=== PATIENT | male | born 1975 | race American Indian/Alaskan Native ===

== ENCOUNTER 2017-01-05 13:36 | Emergency (ER) | payer SELFPAY ==
[2017-01-05 14:21] LABS: Basophils % (Auto) 0.3 % (0.0-1.8); Eosinophils % (Auto) 0.1 % (0.0-4.3); Hematocrit 44.8 % (35.5-45.6); Hemoglobin 14.6 gm/dl (11.8-15.2); Mean Corpuscular HGB Conc 33 % (32-34); Mean Corpuscular Hemoglobin 33 pg (28-32); Mean Corpuscular Volume 100 fl (84-94); Platelet Count 214 K/mm3 (140-440); Red Blood Count 4.48 M/mm3 (3.65-5.03); Red Cell Distribution Width 15.3 % (13.2-15.2); White Blood Count 7.9 K/mm3 (4.5-11.0)
[2017-01-05 14:48] LABS: Anion Gap 27 mmol/L; BUN/Creatinine Ratio 11.42; Blood Urea Nitrogen 8 mg/dL (9-20); Calcium 9.3 mg/dL (8.4-10.2); Carbon Dioxide 21 mmol/L (22-30); Chloride 90.4 mmol/L (98-107); Glucose 134 mg/dL (75-100); Potassium 3.7 mmol/L (3.6-5.0); Sodium 135 mmol/L (137-145)
[2017-01-05 15:14] LABS: Bilirubin,Urine NEG (Negative); Blood,Urine NEG (Negative); Ketones,Urine 80 mg/dL (Negative); Leukocyte Esterase,Urine NEG (Negative); Mucus,Urine FEW /HPF; Nitrite,Urine NEG (Negative)
[2017-01-05] MEDS ORDERED: ZOFRAN ODT PO ONE (16:02)
[2017-01-05] MEDS ORDERED: ALUM-MAG HYDROX-SIMETH 200-200-20MG/5ML PO ONE (16:03)
[2017-01-05] MEDS ORDERED: LIDOCAINE VISCOUS 2% PO ONE (16:03)
--- NOTE | 2017-01-05 16:04 | Emergency Department Report ---
ED Abdominal Pain HPI - General Chief Complaint: Nausea/Vomiting/Diarrhea Stated Complaint: vomit x 1 today w blood; etoh Time Seen by Provider: 01/05/17 15:51 Source: patient, family, old records reviewed Mode of arrival: Ambulatory Limitations: No Limitations - History of Present Illness -: Sudden Location: epigastric Radiation: none Migration to: no migration Severity: mild Quality: sharp Consistency: now resolved Improves With: nothing Worsens With: nothing Associated Symptoms: other (etoh). denies: nausea, vomiting, diarrhea, fever, chills, constipation, dysuria, hematemesis, hematochezia, melena, hematuria, anorexia, syncope - Related Data Allergies Allergy/AdvReac Type Severity Reaction Status Date / Time No Known Allergies Allergy Verified 01/05/17 14:04 ED Review of Systems ROS: Stated complaint: VOMITING BLOOD WITH CHEST PAIN Other details as noted in HPI Comment: Unobtainable due to pts medical conditions Constitutional: no symptoms reported, see HPI. denies: chills, diaphoresis, fever, malaise Eyes: as per HPI. denies: eye pain ENT: as per HPI. denies: ear pain, throat pain Respiratory: no symptoms reported, see HPI. denies: cough, orthopnea Cardiovascular: as per HPI. denies: chest pain, palpitations, dyspnea on exertion, orthopnea Endocrine: no symptoms reported, see HPI. denies: excessive sweating ED Past Medical Hx - Past Medical History Previous Medical History?: No Hx Hypertension: No Hx CVA: No Hx Heart Attack/AMI: No Hx Congestive Heart Failure: No Hx Diabetes: No Hx Deep Vein Thrombosis: No Hx Pulmonary Embolism: No Hx GERD: No Hx Liver Disease: No Hx Renal Disease: No Hx of Cancer: No Hx Sickle Cell Disease: No Hx Arthritis: No Hx Headaches / Migraines: No Hx Seizures: No Hx Kidney Stones: No Hx Psychiatric Treatment: No Hx Asthma: No Hx COPD: No Hx Tuberculosis: No Hx Dementia: No Hx HIV: No Additional medical history: etoh daily 8-17 shots - Surgical History Past Surgical History?: Yes Additional Surgical History: right hand - Social History Smoking Status: Current Every Day Smoker Substance Use Type: Alcohol ED Physical Exam - General Limitations: No Limitations General appearance: alert - Head Head exam: Present: atraumatic - Eye Eye exam: Present: normal appearance Pupils: Present: normal accommodation - ENT ENT exam: Present: mucous membranes moist - Neck Neck exam: Present: normal inspection - Respiratory Respiratory exam: Present: normal lung sounds bilaterally - Cardiovascular Cardiovascular Exam: Present: regular rate, tachycardia - GI/Abdominal GI/Abdominal exam: Present: soft, tenderness (over epigastric area), normal bowel sounds, other (obese). Absent: distended, guarding, rebound, rigid, diminished bowel sounds, hyperactive bowel sounds, hypoactive bowel sounds, organomegaly, mass, bruit, pulsatile mass, hernia - Rectal Rectal exam: Present: deferred - exam: Present: normal inspection - Extremities Exam Extremities exam: Present: normal inspection, full ROM. Absent: tenderness - Back Exam Back exam: Present: normal inspection, full ROM. Absent: tenderness, CVA tenderness (R), CVA tenderness (L) - Neurological Exam Neurological exam: Present: alert, oriented X3, CN II-XII intact, normal gait, reflexes normal - Psychiatric Psychiatric exam: Present: normal affect, anxious - Skin Skin exam: Present: warm, dry, intact, other (pallor) ED Course Vital Signs 01/05/17 01/05/17 14:00 19:09 Temperature 98.3 F Pulse Rate 109 H 101 H Respiratory 16 16 Rate Blood Pressure 127/95 Blood Pressure 140/87 [Left] O2 Sat by Pulse 100 100 Oximetry - Reevaluation(s) Reevaluation #1: 01/05/17 to er today p vomiting blood x 1. this scared him and brought him in. he has epigastric pain and tenderness; no ruq pain or tenderess no fever taking po no n/v/d while here labs noted lft inc w bili inc pallor on exam h/h stable heavy daily etoh use last this am does want to quit but has been unsuccessful no s/s of dt's or withdrawal no home meds no pcp discussed concerns w pt and gi cocktail fluids admit for eval liver dis w inc bili and etoh no tenderness to ruq. no wbc. no fever. will defer imaging to hosp Dr Richards ED Medical Decision Making - Lab Data Result diagrams: 01/05/17 14:10 01/05/17 14:10 - EKG Data Interpretation: no acute changes - Medical Decision Making admit w transaminitis and hyperbil epigastric pain in setting of etoh - Differential Diagnosis etoh abuse concern for cir w hepatic pressure and esoph variceis Critical care attestation.: If time is entered above; I have spent that time in minutes in the direct care of this critically ill patient, excluding procedure time. ED Disposition Clinical Impression: Transaminitis, Hyperbilirubinemia, Alcohol abuse, Epigastric pain, Hematemesis Disposition: OP ADMIT IP TO THIS HOSP Is pt being admited?: Yes Does the pt Need Aspirin: No Condition: Stable Time of Disposition: 19:04
[2017-01-05 16:12] LABS: Albumin 4.6 g/dL (3.9-5); Albumin/Globulin Ratio 1.4 %; Bilirubin,Indirect 2.9 mg/dL; Bilirubin,Total 3.9 mg/dL (0.1-1.2); Total Protein 7.8 g/dL (6.3-8.2)
[2017-01-05] MEDS ORDERED: NACL 0.9% 1000 ML 1,000 ML IV ONE (17:06)
[2017-01-05] MEDS ORDERED: FOLVITE PO SCH (19:25)
--- NOTE | 2017-01-05 19:27 | History and Physical Report ---
History of Present Illness Chief complaint: My stomach hurts History of present illness: 41 YO Male with ETOH Abuse, ETOH Gastritis, Nicotine Dependence presents to ED for evaluation. Pt states that he has experienced abdominal pain, and 1 episode of vomiting with flecks of blood. Pt denies fever, chills, CP, Palpitations, Nausea, diarrhea, productive cough, recent ill contacts, BRBPR, Melena. Pt seen and evaluated in ED, but no significant physical exam findings. Pt medically optimized and treated with supportive care. Pt back to usual state of health. Pt counseled regarding ETOH cessation and discharged home and instructed to f/u with AA, F/U PCP 1wk. Past History Past Medical History: other (Nicotine Dependence, ETOH abuse, ETOG gastritis) Past Surgical History: No surgical history, Other (reviewed) Social history: single, smoking, alcohol abuse. denies: prescription drug abuse , IV drug use Family history: hypertension Medications and Allergies Allergies Allergy/AdvReac Type Severity Reaction Status Date / Time No Known Allergies Allergy Verified 01/05/17 14:04 Home Medications Medication Instructions Recorded Confirmed Last Taken Type Folic Acid [Folvite] 1 mg PO QDAY #30 tablet 01/05/17 Unknown Rx Multivitamin Tab [Multiple Vitamin 1 each PO QDAY #30 tablet 01/05/17 Unknown Rx TAB (Theragran)] Pantoprazole [Protonix] 40 mg PO QDAY #30 tablet 01/05/17 Unknown Rx Sucralfate [Carafate] 1 gm PO ACHS #30 tablet 01/05/17 Unknown Rx Active Meds: Active Medications Sodium Chloride (Nacl 0.45%) 1,000 mls @ 100 mls/hr IV DIRECT VAISHNAVI Pantoprazole Sodium (Protonix) 40 mg IV ONCE.ED ONE Stop: 01/05/17 20:01 Review of Systems Constitutional: no weight loss, no weight gain, no fever, no chills Ears, nose, mouth and throat: no ear pain, no ear discharge, no tinnitis, no decreased hearing, no nose pain, no nasal congestion, no nasal discharge Cardiovascular: no chest pain, no orthopnea, no palpitations, no rapid/ irregular heart beat, no edema, no syncope Respiratory: no cough, no cough with sputum, no excessive sputum, no hemoptysis , no shortness of breath Gastrointestinal: no abdominal pain, no nausea, no vomiting, no diarrhea, no constipation, no change in bowel habits Genitourinary Male: no dysuria, no hematuria, no flank pain, no discharge, no urinary frequency, no urinary hesitancy Rectal: no pain, no incontinence, no bleeding Musculoskeletal: no neck stiffness, no neck pain, no shooting arm pain, no arm numbness/tingling, no low back pain Integumentary: no rash, no pruritis, no redness, no sores, no wounds, no jaundice Neurological: no transient paralysis, no paralysis, no weakness, no parathesias , no numbness, no tingling, no seizures, no syncope Psychiatric: no anxiety, no memory loss, no change in sleep habits, no sleep disturbances, no insomnia, no hypersomnia Endocrine: no cold intolerance, no heat intolerance, no polyphagia, no excessive thirst, no polydipsia, no polyuria Hematologic/Lymphatic: no easy bruising, no easy bleeding Allergic/Immunologic: no urticaria, no allergic rhinitis, no wheezing Exam - Constitutional Vitals: Temp Pulse Resp BP Pulse Ox 98.3 F 101 H 16 140/87 100 01/05/17 14:00 01/05/17 19:09 01/05/17 19:09 01/05/17 19:09 01/05/17 19:09 General appearance: Present: no acute distress, well-nourished - EENT Eyes: Present: PERRL ENT: hearing intact, clear oral mucosa - Neck Neck: Present: supple, normal ROM - Respiratory Respiratory effort: normal Respiratory: bilateral: CTA - Cardiovascular Heart Sounds: Present: S1 & S2. Absent: rub, click - Extremities Extremities: pulses symmetrical, No edema Peripheral Pulses: within normal limits - Abdominal General gastrointestinal: Present: soft, non-tender, non-distended, normal bowel sounds Male genitourinary: Present: normal - Integumentary Integumentary: Present: clear, warm, dry - Musculoskeletal Musculoskeletal: gait normal, strength equal bilaterally - Psychiatric Psychiatric: appropriate mood/affect, intact judgment & insight - Neurologic Neurologic: CNII-XII intact, moves all extremities Results - Labs CBC & Chem 7: 01/05/17 14:10 01/05/17 14:10 Labs: Abnormal lab results 01/05/17 01/05/17 01/05/17 Range/Units 14:10 14:10 14:10 MCV 100 H (84-94) fl MCH 33 H (28-32) pg RDW 15.3 H (13.2-15.2) % Lymph % (Auto) 8.7 L (13.4-35.0) % Lymph # 0.7 L (1.2-5.4) K/mm3 Seg Neutrophils % 84.5 H (40.0-70.0) % Sodium 135 L (137-145) mmol/L Chloride 90.4 L (98-107) mmol/L Carbon Dioxide 21 L (22-30) mmol/L BUN 8 L (9-20) mg/dL Creatinine 0.7 L (0.8-1.5) mg/dL Glucose 134 H (75-100) mg/dL Total Bilirubin 3.90 H (0.1-1.2) mg/dL Direct Bilirubin 1.0 H (0-0.2) mg/dL AST 173 H (5-40) units/L ALT 85 H (7-56) units/L Assessment and Plan - Patient Problems (1) Gastritis Status: Acute Qualifiers: Gastritis type: G Chronicity: C Gastritis bleeding: G Plan to address problem: Carafate, PPI therapy, (2) Alcohol abuse Status: Acute Plan to address problem: Pt counseled regarding ETOH cessation, and instructed to f/u with AA, thiamine, folic acid, and multivitamin daily
[2017-01-05 19:51] LABS: INR 0.93 (0.87-1.13)
[2017-01-05 19:52] LABS: Partial Thromboplastin Time 27.1 Sec. (24.2-36.6)
[2017-01-05] MEDS ORDERED: VITAMIN B-1 PO ONE (20:00)
[2017-01-05] MEDS ORDERED: CARAFATE PO ONE (20:00)
[2017-01-05] MEDS ORDERED: THERAGRAN Tab PO ONE (20:00)
[2017-01-05] MEDS ORDERED: NACL 0.45% 1,000 ML IV SCH (20:00)
[2017-01-05] MEDS ORDERED: PROTONIX IV ONE (20:00)
[2017-01-05] MEDS ORDERED: NACL 0.45% 1000 ML 1,000 ML IV SCH (20:00)
[2017-01-05 20:08] VITALS: BP 145/87
== END 2017-01-05 20:07 | disposition admitted as inpatient to this hospital (09) ==
LOC: ED 13:36
DX: E80.6 Other disorders of bilirubin metabolism (principal); R10.13 Epigastric pain; F10.10 Alcohol abuse, uncomplicated; K92.0 Hematemesis; F17.200 Nicotine dependence, unspecified, uncomplicated; R74.0 Nonspecific elevation of levels of transaminase and lactic acid dehydrogenase [LDH]
CPT/HCPCS: 36415; 80048; 80074; 81001; 84484; 85025; 85610; 85730; 93005; 93010; 96360; 99285; J7030; C9113; Q0162